=== PATIENT | female | born 2000 | race African-American/Black ===

== ENCOUNTER 2021-06-03 10:58 | Emergency (ER) | payer OTHER ==
[2021-06-03] MEDS ORDERED: MOBIC7.5 MG PO (12:51)
== END 2021-06-03 13:04 | disposition home or self-care (01) ==
LOC: FER 10:58
DX: S40.811A Abrasion of right upper arm, initial encounter (principal); R51.9 Headache, unspecified; M54.2 Cervicalgia; F17.210 Nicotine dependence, cigarettes, uncomplicated; V49.40XA Driver injured in collision with unspecified motor vehicles in traffic accident, initial encounter; Y92.410 Unspecified street and highway as the place of occurrence of the external cause
CPT/HCPCS: 70450; 72125; 73110